=== PATIENT | male | born 1985 | race Caucasian/White ===

== ENCOUNTER 2018-02-03 16:25 | Emergency (ER) | payer OTHER ==
[~2018-02-03] VITALS: Ht 177.8 cm; Wt 78.5 kg
[~2018-02-03 16:25] MED LIST: BACTRIM DS TAB1 EACH PO; IBUPROFEN 600600 M1 PO; NAPROSYN500 MG PO; NOHOMEMEDICATIONS; NORCO 5-325 TA1 EACH PO; ZOFRAN ODT4 MG PO
[2018-02-03 18:30] VITALS: BP 132/72
== END 2018-02-03 18:00 | disposition home or self-care (01) ==
LOC: ER 16:25
DX: S63.690A Other sprain of right index finger, initial encounter (principal); X50.1XXA Overexertion from prolonged static or awkward postures, initial encounter; Y92.89 Other specified places as the place of occurrence of the external cause; Y93.75 Activity, martial arts; Y99.8 Other external cause status